=== PATIENT | female | born 2000 | race Caucasian/White ===

== ENCOUNTER 2022-05-14 20:15 | Outpatient (CLI) | payer MEDICAID, SELFPAY ==
[2022-05-14 20:27] VITALS: BMI 30.8
[2022-05-14 20:33] VITALS: PULSE 100; O2SAT 97
[2022-05-14 20:35] VITALS: BP 120/73; PULSE 78
[2022-05-14 20:44] VITALS: TEMP 37.3
[2022-05-14 20:52] VITALS: BP 120/66; PULSE 85; O2SAT 97
[2022-05-14 21:02] LABS: Color, Urine Yellow (Yellow); Glucose, Dipstick Normal (Normal); Ketone-Dipstick 5 mg/dl (Negative); Leukocyte Esterase-Dipstick 500 /ul (Negative); Nitrite-Dipstick Negative (Negative); Occult Blood-Urine Negative /ul (Negative); Protein-Dipstick 15 mg/dl (Negative); Urine Bilirubin Dipstick Negative (Negative); Urine Clarity Sl. Cloudy (Clear); Urine Urobilinogen 4 mg/dl (Normal); Urine pH 6.5 (5.0 - 8.0)
[2022-05-14] MEDS: Acetaminophen 500 MG Tablet 1000 MG PO (21:32)
[2022-05-14 21:36] LABS: Absolute Lymphocyte Count 1.51 X10^3/uL (0.83-4.51); Absolute Neutrophil Count 4.1 X10^3/uL (2.0-7.7); Basophil# 0.02 X10^3/uL; Basophil% 0.3 % (0-1); Eosinophil# 0.02 X10^3/uL; Eosinophils% 0.3 % (0-5); Hematocrit 28.8 % (37-47); Hemoglobin 9.4 g/dL (12.0-15.0); Lymphocyte # 1.51 X10^3/ul (0.83-4.51); Lymphocyte % 24.7 % (19-41); Mean Corp Hgb Conc 32.6 g/dL (32-36); Mean Corpuscular Hgb 29.6 pg (27.0-32.0); Mean Corpuscular Volume 90.6 fL (81-99); Mean Platelet Vol. 8.9 fl (6.2-12.0); Monocyte# 0.48 X10^3/uL; Monocyte% 7.9 % (0-10); NRBC Flagged by Analyzer 0 % (0-5); Neutrophil # 4.05 X10^3/uL (2.7-7.7); Neutrophil % 66.3 % (47-70); Platelet Count 207 K/mm3 (150-450); RBC Distribution Width CV 12.1 % (11.6-14.6); RBC Distribution Width SD 39.6 fl (35.1-43.9); Red Blood Count 3.18 M/mm3 (4.2-5.4); White Blood Count 6.1 K/mm3 (4.4-11.0)
[2022-05-14 21:59] LABS: Protein, Urine (Random) 24.2 mg/dL (<11.9); Protein:Creat Ratio 212 mg/g CRE (0-200)
[2022-05-14 22:01] LABS: ALB/GLOB Ratio 0.7 RATIO (0.9-2.4); AST(SGOT) 13 U/L (15-37); Alanine Aminotransfer ALT/SGPT 12 U/L (13-56); Albumin, Serum 2.3 g/dL (3.2-5.0); Alkaline Phosphatase 145 U/L (45-117); Anion Gap 6 (5-15); BUN 8 mg/dL (7-18); BUN/Creat Ratio 20.3 RATIO (10-20); Calcium,Total 8.2 mg/dL (8.5-10.1); Chloride 109 mmol/L (98-107); Creatinine, Serum 0.39 mg/dL (0.55-1.02); EST Glomerular Filtration Rate 218 mL/min (>60); Est Glom Filt Rate - Afr Amer 264 mL/min (>60); Estimated Creatinine Clearance 181.99 ml/min; Globulin 3.5 g/dL (2.2-4.2); Glucose 80 mg/dL (74-106); Potassium 3.5 mmol/L (3.5-5.1); Protein, Total 5.8 g/dL (6.4-8.2); Sodium Level 140 mmol/L (136-145)
--- NOTE | 2022-05-14 22:23 | OB.TRI.NOTE ---
HPI - General General Date of Admission: 05/14/22 HPI Narrative PERLA VELEZ, is a 21 F who presents pelvic cramping and elevated blood pressures at home. Denies visual changes, chest pain, shortness of breath, right upper quadrant pain. PFSH PFSH Home Medications 1 tab PO/SL DAILY 05/14/22 [History Last Taken 05/14/22 12:00] ondansetron HCl 4 mg tablet 4 mg PO PRN PRN Nausea 05/14/22 [History Last Taken Unknown] Allergy/AdvReac Type Severity Reaction Status Date / Time tramadol Allergy Other Verified 05/14/22 20:39 Physical Exam Const alert, oriented x3, no apparent distress, average body habitus, no limitations and healthy appearing HEENT moist oral mucous membranes Eyes PERRL Neck full ROM Resp normal respiratory effort, no retractions and no use of accessory muscles Extremity normal to inspection, full ROM and no clubbing, cyanosis or edema Neuro moves all extremities and no focal motor deficits Psych mental status grossly normal, affect normal, speech normal and activity/motor behavior normal NST FHR Rate Baby A Baseline: 150 Variability:: Moderate Accelerations:: 15 x 15 Decelerations:: None NST Reactive:: Yes Uterine Activity:: Quiet Assessment & Plan (1) : PLAN: Patient sees summa for her care arrives with cramping and elevated blood pressures at home. HELLP labs within normal limits, reassuring. Cervical exam 1 cm, no signs of labor. Okay to discharge home
== END 2022-05-14 22:32 | disposition home or self-care (01) ==
LOC: WPOUT 20:26 → WP 20:27
PROVIDERS: Visit Provider Student in an Organized Health Care Education/Training Program
DX: O99.891 Other specified diseases and conditions complicating pregnancy (principal); R10.2 Pelvic and perineal pain; R03.0 Elevated blood-pressure reading, without diagnosis of hypertension
CPT/HCPCS: 36415; 59025; 59050; 80053; 81002; 82570; 84156; 85025; 99218; G0378

== ENCOUNTER 2022-05-24 21:22 | Outpatient (CLI) | payer MEDICAID, SELFPAY ==
[2022-05-24 21:53] VITALS: PULSE 81; O2SAT 97
[2022-05-24 21:54] VITALS: TEMP 36.9
[2022-05-24 21:55] VITALS: BP 111/71; PULSE 75
[2022-05-24 22:10] VITALS: BMI 31.9
[2022-05-24 22:35] LABS: ROM Internal Control Test YES-OK TO RESULT pt. (Internal QC); ROM Patient Test Negative (Negative)
--- NOTE | 2022-05-25 03:43 | PCM.PN.OB ---
Subjective Subjective Patient reporting contractions. Reported some leaking. Reports movement. No care patient, has physician at [facility]. Objective Data Objective Data Vital Signs: Vital Signs Temp Pulse BP Pulse Ox 98.4 F 75 111/71 97 05/24/22 21:54 05/24/22 21:55 05/24/22 21:55 05/24/22 21:53 Weight: 79.288 kg Body Mass Index (BMI) 31.9 Lab / Micro Data Labs: Laboratory Results - last 24 hr 05/24/22 22:07: Vag Amniotic Fld Detect Negative Physical Exam Narrative: 2 cm per RN NST FHR Rate Baby A Baseline: 115 Variability:: Moderate Accelerations:: 15 x 15 Decelerations:: None NST Reactive:: Yes Assessment & Plan (1) Irregular contractions: PLAN: 37-week presenting with contractions. Patient states that she had an exam on Monday at which her doctor stripped her membranes, she was 1 cm at the time. 2 cm here today. Brown discharge on glove. ROM negative. status reassuring. Offered to recheck in 2 hours versus discharge home. Patient elected for discharge home. Discharge with labor precautions. Follow-up with physician routine.
== END 2022-05-24 23:00 | disposition home or self-care (01) ==
LOC: WPOUT 21:29 → WP 21:30
PROVIDERS: Visit Provider Student in an Organized Health Care Education/Training Program
DX: O47.1 False labor at or after 37 completed weeks of gestation (principal); Z3A.37 37 weeks gestation of pregnancy
CPT/HCPCS: 59025; 59050; 84112; 99218; G0378

== ENCOUNTER 2022-06-05 08:48 | Inpatient (IN) | payer MEDICAID, SELFPAY ==
[2022-06-05] VITALS (45 sets, daily range): BP systolic 95–164; BP diastolic 48–92; PULSE 64–105; RESP 15–18; TEMP 36.2–37.2; O2SAT 86–99; BMI 32.0
[2022-06-05] MEDS: LACTATED RINGERS 500 ML 999 ML IV (09:10)
[2022-06-05 09:24] LABS: Absolute Lymphocyte Count 2.13 X10^3/uL (0.83-4.51); Absolute Neutrophil Count 5.7 X10^3/uL (2.0-7.7); Basophil# 0.04 X10^3/uL; Basophil% 0.5 % (0-1); Eosinophil# 0.03 X10^3/uL; Eosinophils% 0.4 % (0-5); Hematocrit 31.3 % (37-47); Lymphocyte # 2.13 X10^3/ul (0.83-4.51); Lymphocyte % 25.2 % (19-41); Mean Corp Hgb Conc 31.9 g/dL (32-36); Mean Corpuscular Hgb 28.2 pg (27.0-32.0); Mean Corpuscular Volume 88.4 fL (81-99); Mean Platelet Vol. 9.7 fl (6.2-12.0); Monocyte% 5.9 % (0-10); NRBC Flagged by Analyzer 0 % (0-5); Neutrophil # 5.71 X10^3/uL (2.7-7.7); Neutrophil % 67.5 % (47-70); Platelet Count 237 K/mm3 (150-450); RBC Distribution Width CV 12.4 % (11.6-14.6); RBC Distribution Width SD 39.8 fl (35.1-43.9); Red Blood Count 3.54 M/mm3 (4.2-5.4); White Blood Count 8.5 K/mm3 (4.4-11.0)
[2022-06-05] MEDS: Lactated Ringers 1,000 ML 200 ML IV (09:42)
[2022-06-05] MEDS: fentaNYL 100 MCG/2 ML Ampul IV (09:43)
[2022-06-05 09:47] LABS: ROM Internal Control Test YES-OK TO RESULT pt. (Internal QC); ROM Patient Test Negative (Negative)
[2022-06-05] MEDS: fentaNYL-bupivacaine (epidural) 100 ML BAG EPIDURAL (09:51)
--- NOTE | 2022-06-05 10:22 | HP.PCM.OB_ITS ---
HPI - General General Date of Admission: 06/05/22 HPI Narrative PERLA VELEZ, is a 21 F who presents with ctxs. She reports getting most of her PNC in [place]. Denies complications this . She states in her prior pregnancies she had IUGR and BP issues. Maternal Data Information Final IRMA: 06/13/22 Gestational age: 38&6 PFSH PFSH Home Medications 1 tab PO/SL DAILY 05/14/22 [History Last Taken 1 Day Ago ~06/04/22] ondansetron HCl 4 mg tablet 4 mg PO PRN PRN Nausea 05/14/22 [History Last Taken 2 Weeks Ago ~05/22/22] Allergy/AdvReac Type Severity Reaction Status Date / Time tramadol Allergy Other Verified 06/05/22 09:46 Social History Smoking Status: Current every day smoker History Elective abortions Hx Para 2 Spontaneous abortions Hx # Term Pregnancies Ectopic pregnancies Hx # Pregnancies Multiple births # of living children NST FHR Rate Baby A Baseline: 100 Variability:: Moderate Accelerations:: 15 x 15 Decelerations:: Variable Uterine Activity:: Q 2-3 minutes Vital Signs Vital Signs Vital Signs: 06/05/22 09:05 06/05/22 09:05 06/05/22 09:10 Temperature Temperature Source Pulse Rate 93 88 Blood Pressure BP Systolic BP Diastolic Pulse Ox 99 06/05/22 09:10 06/05/22 09:15 06/05/22 09:15 Temperature Temperature Source Pulse Rate 83 Blood Pressure BP Systolic BP Diastolic Pulse Ox 96 97 06/05/22 09:20 06/05/22 09:20 06/05/22 09:25 Temperature Temperature Source Pulse Rate 101 H 102 H Blood Pressure BP Systolic BP Diastolic Pulse Ox 99 06/05/22 09:25 06/05/22 09:05 06/05/22 09:05 Temperature Temperature Source Temporal Pulse Rate Blood Pressure BP Systolic BP Diastolic Pulse Ox 99 98 06/05/22 09:05 06/05/22 09:30 06/05/22 09:30 Temperature 98.7 F Temperature Source Pulse Rate 105 H Blood Pressure BP Systolic BP Diastolic Pulse Ox 98 06/05/22 09:37 06/05/22 09:37 06/05/22 09:40 Temperature Temperature Source Pulse Rate 82 98 Blood Pressure BP Systolic BP Diastolic Pulse Ox 97 06/05/22 09:40 06/05/22 09:42 06/05/22 09:42 Temperature Temperature Source Pulse Rate 85 Blood Pressure 137/80 H BP Systolic 137 BP Diastolic 80 Pulse Ox 89 06/05/22 09:42 06/05/22 09:49 06/05/22 09:49 Temperature Temperature Source Pulse Rate 71 Blood Pressure 128/68 H BP Systolic 128 BP Diastolic 68 Pulse Ox 86 06/05/22 09:54 06/05/22 09:54 06/05/22 09:57 Temperature Temperature Source Pulse Rate 70 76 Blood Pressure 129/61 H BP Systolic 129 BP Diastolic 61 Pulse Ox 06/05/22 09:57 06/05/22 09:57 06/05/22 09:57 Temperature Temperature Source Pulse Rate 64 Blood Pressure 122/56 H BP Systolic 122 BP Diastolic 56 Pulse Ox 97 06/05/22 10:02 06/05/22 10:02 06/05/22 10:02 Temperature Temperature Source Pulse Rate 76 Blood Pressure 110/59 L BP Systolic 110 BP Diastolic 59 Pulse Ox 98 06/05/22 10:02 06/05/22 10:07 06/05/22 10:07 Temperature Temperature Source Pulse Rate 81 85 Blood Pressure 107/59 L BP Systolic 107 BP Diastolic 59 Pulse Ox 06/05/22 10:07 06/05/22 10:12 06/05/22 10:12 Temperature Temperature Source Pulse Rate 73 Blood Pressure BP Systolic BP Diastolic Pulse Ox 98 98 06/05/22 10:14 06/05/22 10:14 06/05/22 10:17 Temperature Temperature Source Pulse Rate 80 79 Blood Pressure 111/61 BP Systolic 111 BP Diastolic 61 Pulse Ox 06/05/22 10:17 06/05/22 10:17 06/05/22 10:17 Temperature Temperature Source Pulse Rate 91 Blood Pressure 123/67 H BP Systolic 123 BP Diastolic 67 Pulse Ox 98 Weight Weight: 175 lb Body Mass Index (BMI) 32.0 Physical Exam Const alert and oriented x3 Chest inspection of chest normal Resp normal respiratory effort GI soft to palpation, non-tender and non-distended Inspection: gravid external exam normal Narrative: cvx - 9/C/-1. AROM clear amniotic fluid. Labs Labs Labs: Blood Type Pending Antibody Screen Pending Hct 31.3 % (37-47) L Hgb 10.0 g/dL (12.0-15.0) L Assessment & Plan (1) 38 weeks gestation of : COMMENT: @ 38&6 PLAN: Admit to L&D Prenatals obtained from [facility] and patient also reports getting care in [place] GBE negative Hep C equivocal Pain - epidural Routine care
[2022-06-05] MEDS: Oxytocin 15 Units/NS 250ml 15 UNITS/250 ML IV.SOLN 334 UNITS IV (10:44)
--- NOTE | 2022-06-05 10:56 | EX.PCM.OBRPT ---
Maternal Data Information Final IRMA: 06/13/22 Gestational age: 38&6 Vaginal Delivery Maternal Presentation Maternal Presentation: Active Labor Operative Information Date of Procedure: 06/05/22 Pre-Operative Diagnosis: Labor Post-Operative Diagnosis: Labor Surgery / Procedure Performed: Spontaneous Vaginal Delivery Type of Anesthesia: Epidural Estimated Blood Loss: 250ml Findings Description of Procedure: Patient prepped & draped when C/C/+2. She pushed well to deliver the head. head gently guided to allow delivery of anterior and posterior shoulders. No excess traction placed on head. Body delivered and 3VC clamped & cut in delayed fashion. Placenta delivered with gentle traction and good uterine tone obtained. Presentation: RODO Amniotic Membrane Rupture Type: Artificial Amniotic Fluid Description: Clear Placental Delivery Description: Expressed Placenta Disposition: [facility] Specimen(s) Removed: Placenta Cord Vessel Description: 3 Vessels Cord Entanglement: Around neck x 1, loose Nuchal Cord Compression: Without compression A Gender: Female (1 minute): 8 (5 minute): 9 Delayed Cord Clamping: Yes Post Vaginal Delivery Medications Given After Delivery: IV Pitocin Episiotomy Description: None Laceration: None Complication Complications: None
[2022-06-05] MEDS: 0.9% Saline Lock 10 ML Syringe IV (12:15)
[2022-06-05] MEDS: Ibuprofen 600 MG Tablet PO ×2 (13:15→20:18)
[2022-06-05] MEDS: Acetaminophen 500 MG Tablet 1000 MG PO (22:29)
[2022-06-06] MEDS: Ibuprofen 600 MG Tablet PO ×3 (02:29→17:12)
[2022-06-06 03:25] VITALS: BP 115/67; PULSE 75; RESP 16; TEMP 36.6
[2022-06-06] MEDS: Acetaminophen 500 MG Tablet 1000 MG PO ×3 (04:50→20:09)
[2022-06-06 09:55] VITALS: BP 121/73; PULSE 80; RESP 16; TEMP 36.7; O2SAT 95
[2022-06-06 14:05] VITALS: BP 103/71; PULSE 60; RESP 14; TEMP 36; O2SAT 100
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
[2022-06-06 19:55] VITALS: BP 119/71; PULSE 77; RESP 15; TEMP 36.7; O2SAT 97
[2022-06-07 01:00] VITALS: BP 137/86; PULSE 74; RESP 15; TEMP 36.4; O2SAT 99
[2022-06-07] MEDS: Ibuprofen 600 MG Tablet PO ×2 (01:04→17:14)
[2022-06-07] MEDS: Acetaminophen 500 MG Tablet 1000 MG PO ×2 (02:51→17:14)
[2022-06-07 08:00] VITALS: BP 105/61; PULSE 58; RESP 16; TEMP 36.7; O2SAT 96
--- NOTE | 2022-06-07 08:21 | PN_ITS ---
Subjective Subjective patient seen at bedside, doing well. Patient reports good pain control. lochia mild. Objective Data Objective Data Vital Signs: Vital Signs Temp Pulse Resp BP Pulse Ox O2 Del Method 97.5 F L 74 15 137/86 H 99 Room Air 06/07/22 01:00 06/07/22 01:00 06/07/22 01:00 06/07/22 01:00 06/07/22 01:00 06/07/22 01:00 Oxygen Delivery Method Room Air Weight: 79.379 kg Body Mass Index (BMI) 32.0 Intake & Output: Intake and Output for Last 24 Hours 06/05/22 06/06/22 06/07/22 23:59 23:59 23:59 Intake Total 879.24 / 879.24 Output Total 750 / 750 Balance 129.24 / 129.24 Lab / Micro Data Result Diagrams: 06/05/22 09:10 Physical Exam Const alert and oriented x3 General Appearance: cooperative HEENT normocephalic Neck General: normal visual inspection GI soft to palpation and non-distended GI Narrative: Fundus firm Extremity normal to inspection and no calf tenderness Skin no rashes or lesions noted Neuro oriented x3 and CN's II-XII intact bilaterally Psych mental status grossly normal Assessment & Plan Assessment/Plan (1) Vaginal delivery: PLAN: Plan PPD# 2 , Doing well Routine care pain mgmt ambulation dc to hotel status- baby in [facility]
--- NOTE | 2022-06-07 08:22 | DCINST_ITS ---
Discharge Instructions Procedure Vaginal Delivery Diet Discharge Diet: No restrictions Activity May resume sexual activity in: 6-8 weeks Dressing / Incision Call your doctor if you observe: Fever of 101 or Higher, Inability to urinate, Using more than 1 pad per hour and Uncontrolled pain Follow Up Care Please Follow Up With: Lily Gonzalez MD When: 1-2 weeks post and again at 6 weeks post . [phone] Test Results: Test results from this visit will be discussed in further detail at your follow- up appointment, if applicable. Discharge Plan Admission Admit Date/Time: 06/05/22 08:48 Attending Provider: Kike Dominguez Primary Care Provider: Care Physician,Angie Primary Discharge Orders/Prescriptions Prescriptions: New acetaminophen 500 mg Tablet 1,000 mg PO Q6H PRN PRN (Reason: Pain 1-10 Or Fever) Qty: 0 0RF ibuprofen 600 mg Tablet 600 mg PO Q6H PRN PRN (Reason: Pain Score 1-3) Qty: 0 0RF Continued 1 tab PO/SL DAILY Discontinued ondansetron HCl [Zofran] 4 mg Tablet 4 mg PO PRN PRN (Reason: Nausea) Referrals / Follow Up: Care Physician,Angie Primary [Primary Care Provider] - Disposition Disposition (needs filled in before D/C Order can be placed): Home, Self Care
--- NOTE | 2022-06-07 10:04 | NURSING ---
IBCLC round on patient, patient reports she is pumping but sore. Explained to mother I had a discussion with the transition social worker this AM regarding her history of THC use and mention of future use potentially and wanted to ensure she had a good understanding of the recommendations of and THC. Written resource also given that explains the negative effect of and THC use along with recommendations of ceasing if she resumed THC use, patient indicates understanding and reports she wants to breastfeed as that is best for baby and states if she pursues medical marijuana use she is going to be done .
[2022-06-07 14:00] VITALS: BP 119/70; PULSE 70; RESP 16; TEMP 36.4; O2SAT 98
[2022-06-07 17:10] VITALS: BP 118/71; PULSE 75; RESP 16; TEMP 36.6; O2SAT 98
[2022-06-07 20:07] LABS: HCV Quant. RNA PCR HCV Not Detected IU/mL (.)
--- NOTE | 2022-06-10 14:47 | CASEMGMT ---
Social Work Labor and Delivery Unit Met with patient/mother of baby (MOB) at infant's bedside in the special care nursery today. Followed up with MOB for resources in this community. Resources provided: [facility] social service resource list. Handouts on healthy girl, shaken baby prevention and safe sleeping. Packet on mood and anxiety disorders. [facility] information. Car repair program through community action. Rapid rehousing program through [employer]. Information on DNA testing option for medication determination called [employer] (due to MOB previously reporting difficulty finding the medication that works well). Reviewed resources provided. Explored again whether MOB would be willing for any type of mental health referral or referrals to programs such as helping grow or early Headstart. MOB declined stating did not want to overwhelm her mother even further. Educated MOB that services such as helping grow and early Headstart requires no transportation as said programs can come to the MOB. MOB continued to decline any type of referrals. MOB pleasant but appearing tired this date. [facility] children services referral made this date. Spoke with Kristopher Anne at [phone] extension [phone] regarding reports of exposure in to substances in utero (refer to social work assessment for details). Additional dependency risk factors reported including prior history of children services in the [facility], untreated maternal mental health, limited support and finances. Brief maternal and history is provided. Reported urine drug screen negative at delivery and meconium is pending. No other services requested or indicated for MOB. -MARY Murray, MANAGER CONSTRUCTION *This note was generated with [employer] Mediaation software. It may contain incorrect words, spelling, and punctuation that were not noted in review of the chart prior to signing*
== END 2022-06-07 17:22 | disposition home or self-care (01) | DRG 560 ==
PROVIDERS: Admitting Provider Obstetrics & Gynecology; Referring Provider Obstetrics & Gynecology; Visit Provider Obstetrics & Gynecology
DX: O26.23 Pregnancy care for patient with recurrent pregnancy loss, third trimester (principal); Z37.0 Single live birth; F17.200 Nicotine dependence, unspecified, uncomplicated; O99.334 Smoking (tobacco) complicating childbirth; Z3A.38 38 weeks gestation of pregnancy
CPT/HCPCS: 59050; 84112; 85025; 86850; 86900; 86901; 87522; 99218; 99406; J7120; A4216; G0378